=== PATIENT | female | born 1985 | race Caucasian/White ===

== ENCOUNTER 2020-06-11 08:12 | Outpatient (CLI) | payer BC ==
--- NOTE | 2020-06-11 09:44 | MRI ---
MR the lumbar spine without contrast: 06/11/2020 History: Low back pain, bilateral leg pain COMPARISON: None. TECHNIQUE: Multiplanar multisequence MR images were obtained of lumbar spine without IV contrast FINDINGS: On the basis of 5 lumbar type vertebral bodies, conus medullaris terminates at theL1-2 level. Sagittal STIR imaging demonstrates no focal area of osseous marrow edema. T12-L1:Unremarkable L1-2:Unremarkable L2-3:Unremarkable L3-4:Unremarkable L4-5:There is mild facet hypertrophy bilaterally with no significant central canal or neural foramina l stenosis. L5-S1:Mild left facet hypertrophy. No central canal or neural foraminal stenosis. Image retroperitoneal structures demonstrateno acute findings. IMPRESSION: No significant central canal or neural foraminal stenosis within the lumbar spine.
== END 2020-06-11 08:13 | disposition home or self-care (01) ==
LOC: BICMRI 08:12
PROVIDERS: ATTEND Family Medicine
DX: M54.16 Radiculopathy, lumbar region (principal)
CPT/HCPCS: 72148

== ENCOUNTER 2022-06-29 09:27 | Outpatient (CLI) | payer BC | END 2022-06-29 09:28 | disposition home or self-care (01) | LOC: BICMAMMO 09:27 | PROVIDERS: ATTEND Nurse Practitioner Family | DX: N63.41 Unspecified lump in right breast, subareolar (principal); N64.4 Mastodynia; N63.20 Unspecified lump in the left breast, unspecified quadrant; N63.10 Unspecified lump in the right breast, unspecified quadrant; N60.01 Solitary cyst of right breast; Z91.89 Other specified personal risk factors, not elsewhere classified; Z80.3 Family history of malignant neoplasm of breast | CPT/HCPCS: 76942; 77066; G0279 ==